=== PATIENT | female | born 1985 | race Caucasian/White ===

== ENCOUNTER 2018-11-21 12:18 | Emergency (ER) | payer SELFPAY ==
--- NOTE | 2018-11-21 13:15 | RAD REPORT ---
EXAM DESCRIPTION: RAD - Wrist Right 3 View - 11/21/2018 1:09 pm CLINICAL HISTORY: wrist pain Pain COMPARISON: No comparisons FINDINGS: No fracture or dislocation seen. No foreign body or other soft tissue abnormality. IMPRESSION: Negative examination.
--- NOTE | 2018-11-21 13:46 | ER ---
Nurse's Notes [facility] Name: Sabrina Reed Age: 33 yrs Sex: Female : 1985 Arrival Date: 11/21/2018 Time: 12:21 Bed 10 Private MD: Diagnosis: Ganglion, right wrist Presentation: 11/21 12:21 Presenting complaint: Patient states: my R wrist is hurting since last week and i felt hj a knot in the area; denies trauma to the area; pain is 7/10;. Transition of care: patient was not received from another setting of care. Onset of symptoms was November 21, 2018. Risk Assessment: Do you want to hurt yourself or someone else? Patient reports no desire to harm self or others. Initial Sepsis Screen: Does the patient meet any 2 criteria? No. Patient's initial sepsis screen is negative. Does the patient have a suspected source of infection? No. Patient's initial sepsis screen is negative. Care prior to arrival: None. 12:21 Method Of Arrival: Ambulatory 12:21 Acuity: VELMA 4 hj Triage Assessment: 12:23 General: Appears in no apparent distress. uncomfortable, Behavior is calm, cooperative, hj appropriate for age. Pain: Complains of pain in R wrist. 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 - Social history:: Smoking status: Patient uses tobacco products, Patient/guardian denies using alcohol. - Ebola Screening: : Patient negative for fever greater than or equal to 101.5 degrees Fahrenheit, and additional compatible Ebola Virus Disease symptoms Patient denies exposure to infectious person Patient denies travel to an Ebola-affected area in the 21 days before illness onset. Screenin:23 Abuse screen: Denies threats or abuse. Denies injuries from another. Nutritional hj screening: No deficits noted. Tuberculosis screening: No symptoms or risk factors identified. Fall Risk None identified. Vital Signs: 12:24 BP 108 / 69; Pulse 85; Resp 18; Temp 98.2(TE); Pulse Ox 99% on R/A; Weight 61.23 kg; hj Height 5 ft. 6 in. (167.64 cm); Pain 7/10; 13:34 BP 110 / 75; Pulse 86; Resp 18; Pulse Ox 100% on R/A; hj 12:24 Body Mass Index 21.79 (61.23 kg, 167.64 cm) hj ED Course: 12:21 Patient arrived in ED. as 12:22 Triage completed. hj 12:23 Arm band placed on left wrist. hj 12:24 Patient has correct armband on for positive identification. Bed in low position. Call hj light in reach. Side rails up X 1. 12:27 Gen López PA is PHCP. [facility] 12:27 Albert Sandra MD is Attending Physician. [facility] 12:58 Valente Richter, RN is Primary Nurse. hj 13:15 Wrist Right 3 View XRAY In Process Unspecified. EDMS 13:30 Bam Rios MD is Referral Physician. [facility] 13:34 No provider procedures requiring assistance completed. Patient did not have IV access hj during this emergency room visit. Administered Medications: No medications were administered Outcome: 13:30 Discharge ordered by . jmm 13:34 Discharged to home ambulatory. hj 13:34 Condition: stable 13:34 Discharge instructions given to patient, Instructed on discharge instructions, follow up and referral plans. Demonstrated understanding of instructions, follow-up care. 13:35 Patient left the ED. hj Signatures: Dispatcher [employer] EDMS Gen López PA PA jmm Martinez, Amelia as Joaquin, Henry, RN RN
--- NOTE | 2018-11-21 13:47 | EDPHYS ---
Physician Documentation [facility] Name: Sabrina Reed Age: 33 yrs Sex: Female : 1985 Arrival Date: 11/21/2018 Time: 12:21 Bed 10 Private MD: ED Physician Albert Sandra HPI: 11/21 12:30 This 33 yrs old Female presents to ER via Ambulatory with complaints of Wrist jmm Pain. 12:30 The patient or guardian reports pain, swelling. Onset: The symptoms/episode jmm began/occurred gradually, 1 week(s) ago. Modifying factors: The symptoms are alleviated by nothing, the symptoms are aggravated by movement. Associated signs and symptoms: Pertinent negatives: cyanosis distally, decreased sensation distally, fever, numbness distally, tingling distally. This is a 33 year old female with no chronic medical conditions that presents to the ED with complains of right wrist pain beginning 1 week ago. Patient states the pain worsened today. Patient denies known injury. . 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 - Social history:: Smoking status: Patient uses tobacco products, Patient/guardian denies using alcohol. - Ebola Screening: : Patient negative for fever greater than or equal to 101.5 degrees Fahrenheit, and additional compatible Ebola Virus Disease symptoms Patient denies exposure to infectious person Patient denies travel to an Ebola-affected area in the 21 days before illness onset. ROS: 12:30 Constitutional: Negative for fever, chills, and weight loss, Cardiovascular: Negative jmm for chest pain, palpitations, and edema, Respiratory: Negative for shortness of breath, cough, wheezing, and pleuritic chest pain. 12:30 MS/extremity: Positive for pain. 12:30 All other systems are negative. Exam: 12:30 Constitutional: This is a well developed, well nourished patient who is awake, alert, jmm and in no acute distress. Head/Face: atraumatic. Eyes: EOMI, no conjunctival erythema appreciated ENT: Moist Mucus Membranes Neck: Trachea midline, Supple 12:30 Hand exam: ROM: intact in all extremities. [facility] 12:30 Chest/axilla: Normal chest wall appearance and motion. Cardiovascular: Regular rate jm and rhythm. No edema appreciated Respiratory: Normal respirations, no respiratory distress appreciated Abdomen/GI: Non distended, soft Back: Normal ROM Skin: General appearance color normal 12:30 Musculoskeletal/extremity: swelling noted to the dorsum of the right wrist appears cyst like. TTP, full radial pulse, compartments are soft, NVI. 12:30 Skin: Appearance: Color: normal in color. 12:30 Neuro: Orientation: is normal, Mentation: is normal, Memory: is normal. 12:30 Psych: Behavior/mood is pleasant, cooperative. Vital Signs: 12:24 BP 108 / 69; Pulse 85; Resp 18; Temp 98.2(TE); Pulse Ox 99% on R/A; Weight 61.23 kg; Height 5 ft. 6 in. (167.64 cm); Pain 7/10; 13:34 BP 110 / 75; Pulse 86; Resp 18; Pulse Ox 100% on R/A; hj 12:24 Body Mass Index 21.79 (61.23 kg, 167.64 cm) MDM: 12:30 Patient medically screened. [facility] 13:29 Data reviewed: vital signs, nurses notes. Counseling: I had a detailed discussion with madison the patient and/or guardian regarding: the historical points, exam findings, and any diagnostic results supporting the discharge/admit diagnosis, radiology results, the need for outpatient follow up, to return to the emergency department if symptoms worsen or persist or if there are any questions or concerns that arise at home. 11/21 12:43 Order name: Wrist Right 3 View XRAY; Complete Time: 13:17 [facility] 11/21 13:18 Order name: Wrist Splint; Complete Time: 13:29 [facility] Administered Medications: No medications were administered Disposition: 11/22 07:24 Co-signature as Attending Physician, Albert Sandra MD I agree with the assessment and kdr plan of care. Disposition: 11/21/18 13:30 Discharged to Home. Impression: Ganglion, right wrist. - Condition is Stable. - Discharge Instructions: Ganglion Cyst. - Medication Reconciliation Form, Thank You Letter, Antibiotic Education, Prescription Opioid Use form. - Follow up: Bam Rios MD; When: 2 - 3 days; Reason: Recheck today's complaints, Continuance of care, Re-evaluation by your physician. Signatures: Dispatcher [employer] Albert Boudreaux MD MD kdr Mickail, Joel, PA PA jmm Joaquin, Henry, RN RN hj Corrections: (The following items were deleted from the chart) 11/21 13:35 13:30 11/21/2018 13:30 Discharged to Home. Impression: Ganglion, right wrist. Condition hj is Stable. Forms are Medication Reconciliation Form, Thank You Letter, Antibiotic Education, Prescription Opioid Use. Follow up: Bam Rios; When: 2 - 3 days; Reason: Recheck today's complaints, Continuance of care, Re-evaluation by your physician. madison
== END 2018-11-21 13:35 | disposition home or self-care (01) ==
LOC: ER 12:18
DX: M67.431 Ganglion, right wrist (principal); Z72.0 Tobacco use; Z88.5 Allergy status to narcotic agent
CPT/HCPCS: 99283